=== PATIENT | male | born 1990 | race African-American/Black ===

== ENCOUNTER 2016-10-14 05:30 | Emergency (ER) | payer OTHER ==
[~2016-10-14] VITALS: Ht 177.8 cm; Wt 72.6 kg
[2016-10-14 06:30] LABS: HEMOGLOBIN 14.9 gm/dL (14.0-18.0); MCH 29.3 pg (26.0-34.0); MCHC 34.6 g/dL (28.0-37.0); MCV 84.6 fL (80.0-100.0); RBC 5.09 mil/uL (4.50-6.00); RDW 13.1 % (10.5-14.5); WBC 11.1 thou/uL (4.0-11.0)
[2016-10-14 06:34] LABS: CALCIUM 9.3 mg/dL (8.5-10.1); CREATININE 1.5 mg/dL (0.6-1.3); POTASSIUM 4.3 mmol/L (3.5-5.1)
[2016-10-14 06:38] LABS: ALBUMIN 3.9 g/dL (3.4-5.0); MAGNESIUM 2.2 mg/dL (1.8-2.4); TOTAL BILIRUBIN 0.3 mg/dL (<0.1-1.0); TOTAL PROTEIN 7.4 g/dL (6.4-8.2)
[2016-10-14 07:12] LABS: AMP/METHAMP Negative (Negative); BARBITURATES Negative (Negative); BENZODIAZEPINES Negative (Negative); COCAINE POSITIVE (Negative); METHADONE Negative (Negative); OPIATES Negative (Negative); PCP Negative (Negative); THC POSITIVE (Negative)
[2016-10-14 08:05] VITALS: BP 101/51
[2016-10-14] MEDS ORDERED: KEPPRA 500 MG500 M1 PO (13:08)
[2016-10-15] MEDS ORDERED: KEPPRA 500 MG500 M1 PO (10:38)
== END 2016-10-14 08:08 | disposition home or self-care (01) ==
LOC: ER 05:30
PROVIDERS: Emergency Medicine
DX: G40.901 Epilepsy, unspecified, not intractable, with status epilepticus (principal); R11.10 Vomiting, unspecified; F19.10 Other psychoactive substance abuse, uncomplicated; F17.210 Nicotine dependence, cigarettes, uncomplicated; F12.10 Cannabis abuse, uncomplicated

== ENCOUNTER 2016-10-14 10:15 | Inpatient (IN) | payer OTHER ==
[~2016-10-14] VITALS: Ht 180.3 cm; Wt 72.7 kg
--- NOTE | ~2016-10-14 | HC ---
[facility] [place] [address] CONSULTATION Name: SURYA CHASE Room #: 316-P [facility] IN M.R.#: [id number] Admission: 10/14/16 Attend Phys: Virginia Tabor MD Discharge: 10/15/16 Date of : 89 Report #: [id number] THIS REPORT FOR: //name// CC: FAM unknown Virginia Tabor DATE OF SERVICE: 10/14/2016 HISTORY OF PRESENT ILLNESS: This is a 26-year-old male patient who is extremely uncooperative. Neither he will give a history nor he will let me examine him. I had called the registered respiratory technician to do the EEG on him tonight. He will not allow us to do the EEG either. He is competent to make his decision. He is conscious and alert, but he will not let us to do anything. He understands why we want to do it and the consequences of not doing it, but will not allow anything. History is almost entirely from the record and by talking to the nurses. It looks like this patient had a seizure, then he had another seizure. He apparently had seizure before and he used to be on Keppra, but has not taken Keppra. How long he has not taken the Keppra is not clear. His urine drug screen is positive for marijuana as well as cocaine. REVIEW OF SYSTEMS: Attempted. It is entirely from the record and is as described above. I tried to get 14-point review of systems from the record, it is summarized there, and I looked at it and on that ____ detailed note of at least 10-point system. PAST MEDICAL HISTORY: Positive for seizure, but I cannot get any further history in that regard. FAMILY HISTORY: Not available in this patient. SOCIAL HISTORY: This patient has a very significant problem with smoking and using drugs. The patient's examination was almost impossible. He will not cooperate. He will not let me do anything on him. I do not think he has meningeal sign. He does not have any cardiac arrhythmias, but that is all the exam he will allow. His blood pressure is 142/91, respirations 18, pulse is 91, temperature is 99.7. This patient did have a temperature of 100.4. His laboratories indicate that a white count is 11.1. Differential was not done. His creatinine is 1.5 and his sodium was normal. I do not see any radiological study in this patient. IMPRESSION: 1. Breakthrough seizure secondary to noncompliance. [address] [address] CONSULTATION Name: SURYA CHASE Room #: 316-P [facility] IN M.R.#: [id number] Admission: 10/14/16 Attend Phys: Virginia Tabor MD Discharge: 10/15/16 Date of : 89 Report #: [id number] 2. Extreme amount of uncooperation and we are unable to do anything at the moment. RECOMMENDATION: 1. I had called the registered respiratory technician to come and do EEG on him, but he ____ a few stat and I have to cancel that. 2. I talked to the nurses and his girlfriend is going to be here. If she can talk him into getting a CT scan done, I will like to do a CT on him because he has taken cocaine and those patients can have small bleed or a stroke and he is complaining of headache. If he does not allow I am not sure what I can do. We will try again tomorrow to see this patient and hopefully he will be more cooperative. In the meantime, I will suggest restarting Keppra, which I did. I will also suggest discontinuing Ultram because of its high epileptiform potential. Thank you very much for this referral. <ELECTRONICALLY SIGNED> By: Otto Cadena MD 10/16/161925 47 25 Otto Cadena MD /nt
--- NOTE | ~2016-10-14 | D ---
[facility] [place] [address] DISCHARGE SUMMARY Name: SURYA CHASE Room #: 316-P [facility] IN M.R.#: [id number] Admission: 10/14/16 Attend Phys: Virginia Tabor MD Discharge: 10/15/16 Date of : 89 Report #: [id number] THIS REPORT FOR: //name// CC: FAM unknown Virginia Tabor DATE OF SERVICE: 10/15/2016 DISCHARGE DIAGNOSES: 1. Breakthrough seizures secondary to noncompliance. 2. Acute kidney injury secondary to acute tubular necrosis, now resolved. 3. Substance abuse. CONSULTS: Neurology. PROCEDURES: He had a spot EEG done today with results pending. HOSPITAL COURSE: The patient is a 26-year-old male with a history of seizure disorder; however, he has been out of his medications for several weeks now, presented to the ER secondary to breakthrough seizure. Please see details of admission dictated by on October 14. The patient was admitted and Neurology was consulted. He was given a lowering dose of Dilantin, subsequently given Keppra, which he believes he was on prior to coming in. Additionally, his urine drug screen was positive for cocaine, marijuana. He indicates that he has been out of his medications for 3 weeks. When I asked him who was prescribing the medications, he could not provide me with a name and told me that his mom knew. It is uncertain as to whether he gets routine care or not as he was not very forthcoming with information. He actually is trying to leave against medical advice today and also refused a CAT scan and initially refused an EEG as well. On admission, he also had some acute renal failure, probably for substance abuse and his breakthrough seizures. He received some IV fluids and this has since resolved. He has had no further seizures since yesterday afternoon and he was cleared for discharge by Neurology. DISCHARGE DISPOSITION: To home. DISCHARGE PHYSICAL EXAMINATION: VITAL SIGNS: Temperature of 97, pulse 67, blood pressure 101/45, O2 sat 96% on room air. GENERAL: He is awake, alert, answering questions appropriately, in no acute respiratory distress. HEENT: Normocephalic, atraumatic. Pupils are equal. NECK: Supple. CARDIOVASCULAR: Regular rate and rhythm, no murmurs. LUNGS: Clear to auscultation bilaterally. No crackles or wheezes. ABDOMEN: Soft, no distention or tenderness. [facility] [email or web address] [address] DISCHARGE SUMMARY Name: SURYA CHASE Room #: 316-P [facility] IN .R.#: [id number] Admission: 10/14/16 Attend Phys: Virginia Tabor MD Discharge: 10/15/16 Date of : 89 Report #: [id number] EXTREMITIES: No edema. NEUROLOGIC: Nonfocal. DISCHARGE MEDICATIONS: He will go home on Keppra 500 b.i.d. DIET: Regular diet. ACTIVITY: No driving, heights or ladders until cleared by Neurology. Follow up with primary care in 1 week. Follow up with Neurology in 2 weeks to a month and seek immediate medical attention if symptoms worse or recur if he has any other significant medical concerns. By: [id number] Virginia Tabor MD /nt
--- NOTE | ~2016-10-14 | EEG ---
[facility] [place] [address] ELECTROENCEPHALOGRAM Name: SURYA CHASE Room #: 316-P [facility] IN M.R.#: [id number] Admission: 10/14/16 Attend Phys: Virginia Tabor MD Discharge: 10/15/16 Date of : 89 Report #: [id number] THIS REPORT FOR: //name// CC: FAM unknown Virginia Tabor DATE OF SERVICE: 10/15/2016 This patient is being evaluated for the possibility of seizure. EEG was done by placing the electrodes by standard 10-20 system of electrode placement. Both referential and sequential montages were used for recording. Background activity in this patient's EEG is about 11 Hz and 40 microvolts. The patient became drowsy and that is associated with bilateral slowing and a few vertex sharp waves. Photic stimulation is unremarkable. Throughout the record, no active epileptiform activity was noticed. IMPRESSION: This patient's EEG is within normal limits. No active epileptiform activity was noticed. It might be mentioned that EEG can be normal in a patient with a seizure disorder. Thank you very much for this referral. <ELECTRONICALLY SIGNED> By: Otto Cadena MD 10/16/16 1930 [id number] Otto Cadena MD /nt
[2016-10-14 10:16] VITALS: BP 120/61
[2016-10-14] MEDS ORDERED: KEPPRA 500 MG500 M1 PO (13:08)
[2016-10-14 13:45] VITALS: BP 109/62
[2016-10-14 17:15] VITALS: BP 142/91
[2016-10-14 20:33] VITALS: BP 102/45
[2016-10-15] VITALS: BP 94/53
[2016-10-15 01:07] LABS: GLYCOHEMOGLOBIN (HGB A1C) 4.7 % (4.8-5.6)
[2016-10-15 05:07] LABS: HEMATOCRIT 36.6 % (42.0-52.0); MCH 29.2 pg (26.0-34.0); MCHC 34.5 g/dL (28.0-37.0); MCV 84.5 fL (80.0-100.0); RBC 4.33 mil/uL (4.50-6.00); RDW 12.8 % (10.5-14.5); WBC 11.3 thou/uL (4.0-11.0)
[2016-10-15 05:20] VITALS: BP 110/50
[2016-10-15 05:35] LABS: ALBUMIN 3.2 g/dL (3.4-5.0); CALCIUM 8.2 mg/dL (8.5-10.1); CREATININE 0.9 mg/dL (0.6-1.3); MAGNESIUM 1.9 mg/dL (1.8-2.4); TOTAL BILIRUBIN 0.6 mg/dL (<0.1-1.0)
[2016-10-15 05:37] LABS: POTASSIUM 3.3 mmol/L (3.5-5.1)
[2016-10-15 05:39] LABS: HEMOGLOBIN 12.6 gm/dL (14.0-18.0)
[2016-10-15 08:00] VITALS: BP 101/45
[2016-10-15] MEDS ORDERED: KEPPRA 500 MG500 M1 PO (10:38)
== END 2016-10-15 12:00 | disposition home or self-care (01) | DRG 100 ==
LOC: ER 10:15 → EROBS 10:41 → 3N 10:41
PROVIDERS: Family Medicine; Nurse Practitioner
DX: G40.909 Epilepsy, unspecified, not intractable, without status epilepticus (principal); N17.0 Acute kidney failure with tubular necrosis; F17.210 Nicotine dependence, cigarettes, uncomplicated; I95.9 Hypotension, unspecified; R73.9 Hyperglycemia, unspecified; F10.10 Alcohol abuse, uncomplicated; F12.10 Cannabis abuse, uncomplicated; F14.10 Cocaine abuse, uncomplicated; N28.9 Disorder of kidney and ureter, unspecified; Y90.0 Blood alcohol level of less than 20 mg/100 ml; Z79.899 Other long term (current) drug therapy; Z91.14 Patient's other noncompliance with medication regimen; Z71.6 Tobacco abuse counseling
CPT/HCPCS: 10096